=== PATIENT | female | born 1940 | race Caucasian/White ===

== ENCOUNTER 2017-11-04 19:06 | Emergency (ER) | payer OTHER, BC ==
[~2017-11-04] VITALS: Ht 154.9 cm; Wt 61.0 kg
[~2017-11-04 19:06] MED LIST: ARTHRITIS PAIN650 M5 PO; CATAPRES0.1 MG PO; CRESTOR20 MG PO; DITROPAN XL5 MG PO; LO-DOSE ASPIRIN81 M1 PO; PREVACID30 MG PO; PROZAC20 MG PO; SYNTHROID75 MCG PO; ULTRAM50 MG PO; ZESTRIL40 MG PO
[2017-11-04 23:27] VITALS: BP 159/84
== END 2017-11-04 23:28 | disposition home or self-care (01) ==
LOC: EME 19:06
PROC: 0JQ00ZZ Repair Scalp Subcutaneous Tissue and Fascia, Open Approach (ICD-10-PCS; principal; 2017-11-04)
DX: S01.01XA Laceration without foreign body of scalp, initial encounter (principal); S16.1XXA Strain of muscle, fascia and tendon at neck level, initial encounter; M50.30 Other cervical disc degeneration, unspecified cervical region; W11.XXXA Fall on and from ladder, initial encounter; E11.51 Type 2 diabetes mellitus with diabetic peripheral angiopathy without gangrene; I10 Essential (primary) hypertension; K21.9 Gastro-esophageal reflux disease without esophagitis; E78.5 Hyperlipidemia, unspecified; Z79.82 Long term (current) use of aspirin; Z79.4 Long term (current) use of insulin; Z95.2 Presence of prosthetic heart valve; Z96.41 Presence of insulin pump (external) (internal); Z95.9 Presence of cardiac and vascular implant and graft, unspecified; Z88.2 Allergy status to sulfonamides
CPT/HCPCS: 70450; 72125; 99281; 99284